=== PATIENT | female | born 1965 | race Caucasian/White ===

== ENCOUNTER 2017-12-23 18:43 | Emergency (ER) | payer SELFPAY, OTHER | END 2017-12-23 23:50 | disposition left against medical advice (07) | LOC: M ED 18:43 | DX: M54.2 Cervicalgia (principal); Z53.21 Procedure and treatment not carried out due to patient leaving prior to being seen by health care provider ==

== ENCOUNTER 2020-07-20 20:19 | Emergency (ER) | payer BC, SELFPAY ==
[~2020-07-20] VITALS: Ht 177.8 cm; Wt 125.3 kg
[2020-07-20] MEDS ORDERED: LEVO150T7 (20:26)
[2020-07-20] MEDS ORDERED: diphenhydrAMINE 50MG/ML VIAL (J1200) IV STA (21:23)
[2020-07-20] MEDS ORDERED: METOCLOPRAMIDE INJ 10MG/2ML VIAL (J2765 PER 1) IV ONE (21:30)
[2020-07-20] MEDS ORDERED: NS 1,000 ML IV ONE (21:30)
[2020-07-20] MEDS ORDERED: KETOROLAC 30 MG/ML 1ML VIAL IV ONE (21:30)
[2020-07-20 22:09] LABS: BASO # 0.1 10^3/uL (0.0-0.2); BASO % 0.6 % (0.0-1.0); EOS # 0.1 10^3/uL (0.0-0.5); EOS % 1.2 % (0.0-3.0); HEMATOCRIT 38.6 % (36.0-47.0); HEMOGLOBIN 12.6 g/dl (12.0-15.5); LYMPH # 1.4 10^3/uL (1.5-5.0); LYMPH % 16.5 % (24.0-44.0); MEAN CORPUSCULAR HEMOGLOBIN 29.6 pg (27.0-33.0); MEAN CORPUSCULAR HGB CONC 32.6 g/dl (32.0-36.5); MEAN CORPUSCULAR VOLUME 90.6 fl (80.0-96.0); MONO # 0.9 10^3/uL (0.0-0.8); MONO % 9.9 % (0.0-5.0); NEUTROPHILS # 6.2 10^3/uL (1.5-8.5); NEUTROPHILS % 71.6 % (36.0-66.0); PLATELET COUNT, AUTOMATED 227 10^3/uL (150-450); RED BLOOD COUNT 4.26 10^6/uL (4.00-5.40); WHITE BLOOD COUNT 8.6 10^3/uL (4.0-10.0)
[2020-07-20 22:32] LABS: ALBUMIN 3.3 GM/DL (3.2-5.2); ALT/SGPT 65 U/L (12-78); BILIRUBIN,DIRECT 0.2 MG/DL (0.0-0.2); BILIRUBIN,TOTAL 0.5 MG/DL (0.2-1.0); BLOOD UREA NITROGEN 13 MG/DL (7-18); CALCIUM LEVEL 8.3 MG/DL (8.5-10.1); CARBON DIOXIDE LEVEL 29 MEQ/L (21-32); CHLORIDE LEVEL 108 MEQ/L (98-107); CREATININE FOR GFR 0.69 MG/DL (0.55-1.30); GLOMERULAR FILTRATION RATE > 60.0 (>51); GLUCOSE, FASTING 90 MG/DL (70-100); POTASSIUM SERUM 3.5 MEQ/L (3.5-5.1); SODIUM LEVEL 143 MEQ/L (136-145); TOTAL PROTEIN 6.5 GM/DL (6.4-8.2)
[2020-07-20 22:33] LABS: LIPASE 90 U/L (73-393)
[2020-07-20 22:35] LABS: MONO REFLEX EBV COMP NEGATIVE (NEGATIVE)
[2020-07-20 22:42] LABS: RSV AMPLIFICATION NEGATIVE (NEGATIVE)
[2020-07-20] MEDS ORDERED: MAGIC MOUTHWASH SUSPENSION BTL SS STA (22:47)
[2020-07-20] MEDS ORDERED: MAGICMW SSP (23:32)
[2020-07-20] MEDS ORDERED: KEFL500C17 PO (23:32)
[2020-07-20 23:43] VITALS: BP 135/85
[2020-07-20] MEDS ORDERED: CEPHALEXIN 500 MG CAP PO ONE (23:45)
[2020-07-21] MEDS ORDERED: MAGICMW SSP (00:12)
[2020-07-21] MEDS ORDERED: KEFL500C17 PO (00:12)
[2020-07-23 13:07] LABS: EBV VIRAL CAPSID AG IgG >600.0 U/mL (0.0-17.9); EBV VIRAL CAPSID AG IgM <36.0 U/mL (0.0-35.9)
== END 2020-07-20 23:45 | disposition home or self-care (01) ==
LOC: M ED 20:19
DX: J02.0 Streptococcal pharyngitis (principal); E03.9 Hypothyroidism, unspecified; Z79.899 Other long term (current) drug therapy
CPT/HCPCS: 80048; 80076; 83690; 85025; 86308; 86664; 86665; 87631; 87880; 96361; 96374; 96375; 99284; J1200; J1885; J2765

== ENCOUNTER → 2021-04-02 | Outpatient (CLI) | payer BC ==
[~2021-04-02] MED LIST: KEFL500C17 PO; LEVO150T7; MAGICMW SSP
== END ==
LOC: M LABSMTC 09:31
PROVIDERS: ATTEND Pediatrics
DX: Z20.828 Contact with and (suspected) exposure to other viral communicable diseases (principal); Z11.59 Encounter for screening for other viral diseases
CPT/HCPCS: C9803; U0003

== ENCOUNTER 2021-04-26 07:00 | Emergency (ER) | payer BC ==
[~2021-04-26] VITALS: Ht 177.8 cm; Wt 121.8 kg
[2021-04-26] MEDS ORDERED: KETOROLAC 60MG 2ML VIAL IM ONE (07:40)
[2021-04-26] MEDS ORDERED: ACET1TAB16 PO (07:54)
--- NOTE | 2021-04-26 09:30 | REPVR ---
PROCEDURE INFORMATION: Exam: CT Right Lower Extremity Without Contrast, Knee Exam date and time: 04/26/2021 7:47 AM Age: 55 years old Clinical indication: Pain; Knee; Right; Additional info: Normal xrays at [facility] [place], surgery on may 16, lateral pain, pop TECHNIQUE: Imaging protocol: CT of the Right lower extremity without contrast was performed. Exam focused on the knee. Radiation optimization: All CT scans at this facility use at least one of these dose optimization techniques: automated exposure control; mA and/or kV adjustment per patient size (includes targeted exams where dose is matched to clinical indication); or iterative reconstruction. COMPARISON: No relevant prior studies available. FINDINGS: Bones/joints: Mild lateral patellar tilt and subluxation. Moderate degenerative change of the medial compartment of the knee. Moderate degenerative change of the patellofemoral compartment. Mild degenerative change of the lateral compartment. Few tiny benign bone islands. Small knee joint effusion. Superior and inferior patellar enthesophytes. No acute fracture. No dislocation. Soft tissues: Mild prepatellar and infrapatellar subcutaneous edema. IMPRESSION: 1. No acute osseous abnormality. 2. Tricompartmental DJD and small knee joint effusion. 3. Mild lateral patellar tilt and subluxation. Electronically signed by: Susan Elam On 04/26/2021 09:30:47 AM
[2021-04-26] MEDS ORDERED: HYDR-3713 PO (09:40)
[2021-04-26 10:00] VITALS: BP 146/74
== END 2021-04-26 10:03 | disposition home or self-care (01) ==
LOC: M ED 07:00
DX: M17.11 Unilateral primary osteoarthritis, right knee (principal); M25.461 Effusion, right knee; S83.011A Lateral subluxation of right patella, initial encounter; X50.0XXA Overexertion from strenuous movement or load, initial encounter; Y92.009 Unspecified place in unspecified non-institutional (private) residence as the place of occurrence of the external cause; Y93.9 Activity, unspecified; Y99.9 Unspecified external cause status; E03.9 Hypothyroidism, unspecified; K21.9 Gastro-esophageal reflux disease without esophagitis; Z98.84 Bariatric surgery status; Z90.710 Acquired absence of both cervix and uterus; Z90.49 Acquired absence of other specified parts of digestive tract; Z79.890 Hormone replacement therapy
CPT/HCPCS: 73700; 96372; 99284; J1885